=== PATIENT | female | born 1960 | race Caucasian/White ===

== ENCOUNTER 2016-05-05 18:42 | Emergency (ER) | payer BC, MEDICAID ==
--- NOTE | 2016-05-05 18:58 | ER Document Report ---
ED Medical Screen (RME) - General Stated Complaint: LEFT HAND INJURY Mode of Arrival: Ambulatory Information source: Patient Notes: Patient presents to the emergency department sent over by urgent care for increased weakness in her right upper extremity. Patient has history of aneurysms. Dr. wilson called pto requesting an MRI for the patient. Pt reports RUE has been weak for a couple of weeks. Pt went to urgent care for left hand pain. She reports +fx of 1,2,3 digit of right hand after window fell on hand. pt reports hx of two brain surgeries. I have consulted the attending provider dr blair per [facility] guidelines I have greeted and performed a rapid initial assessment of this patient. A comprehensive ED assessment and evaluation of the patient, analysis of test results and completion of the medical decision making process will be conducted by additional ED providers. TRAVEL OUTSIDE OF THE [place] IN LAST 30 DAYS: No - Related Data Allergies/Adverse Reactions: morphine Adverse Reaction (Verified 05/05/16 18:50) Past Medical History GI Medical History: Reports: Hx Gastroesophageal Reflux Disease Past Surgical History: Reports: Hx Abdominal Surgery, Hx Neurologic Surgery - 1 X stent, Hx Orthopedic Surgery - L elbow, Hx Tonsillectomy
[2016-05-05] MEDS ORDERED: OXYCODONE HCL IR 5 MG TABLET PO ONE (21:45)
--- NOTE | 2016-05-05 22:27 | ER Document Report ---
ED Hand/Wrist Injury - General Chief Complaint: Hand Pain Stated Complaint: LEFT HAND INJURY Time seen by provider: 22:27 Mode of Arrival: Ambulatory Information source: Patient TRAVEL OUTSIDE OF THE [place] IN LAST 30 DAYS: No - HPI Patient complains to provider of: left third fourth and fifth finger pain, right upper extremity weakness Injury to: Index finger, Middle finger, Ring finger Onset: Just prior to arrival Where: Home Timing: Constant Quality of pain: Achy Severity: Moderate Pain Level: 3 Context: Crush Notes: Patient is a 56-year-old female who was sent from local urgent care for evaluation of 2 separate issues, she went to the urgent care Center for complaints of injury to her left second third and fourth fingertips, states the window slammed on her fingers causing an injury with pain and swelling to these areas, she denies any other injury or trauma, her second complaint and mainly why the urgent care center to the emergency room is regarding right upper extremity weakness that she's been experiencing over the past week, patient reports a history of aneurysm in the past which has been coiled, and therefore the urgent care physician was concerned that she may have developed a new aneurysm causing her right upper extremity weakness, patient denies any pain or injury to this right upper extremity, no headaches, no slurred speech, no weakness of the lower extremities - Related Data Allergies/Adverse Reactions: morphine Adverse Reaction (Verified 05/05/16 18:50) Past Medical History - General Information source: Patient - Social History Smoking Status: Current Every Day Smoker Chew tobacco use (# tins/day): No Frequency of alcohol use: Rare Drug Abuse: None Family History: Reviewed & Not Pertinent Renal/ Medical History: Denies: Hx Peritoneal Dialysis GI Medical History: Reports: Hx Gastroesophageal Reflux Disease Past Surgical History: Reports: Hx Abdominal Surgery, Hx Neurologic Surgery - 1 X stent, Hx Orthopedic Surgery - L elbow, Hx Tonsillectomy Review of Systems - Review of Systems Constitutional: No symptoms reported EENT: No symptoms reported Cardiovascular: No symptoms reported Respiratory: No symptoms reported Gastrointestinal: No symptoms reported Genitourinary: No symptoms reported Female Genitourinary: No symptoms reported Musculoskeletal: See HPI Skin: No symptoms reported Hematologic/Lymphatic: No symptoms reported Neurological/Psychological: No symptoms reported -: Yes All other systems reviewed and negative Physical Exam - Vital signs Vitals: Temp Pulse Resp BP Pulse Ox 97.9 F 102 H 18 149/94 H 98 05/05/16 18:51 05/05/16 18:51 05/05/16 18:51 05/05/16 18:51 05/05/16 18:51 Interpretation: Tachycardic - General General appearance: Appears well, Alert - HEENT Head: Normocephalic, Atraumatic Eyes: Normal Pupils: PERRL - Respiratory Respiratory status: No respiratory distress Chest status: Nontender Breath sounds: Normal Chest palpation: Normal - Cardiovascular Rhythm: Regular Heart sounds: Normal auscultation Murmur: No - Abdominal Inspection: Normal Distension: No distension Bowel sounds: Normal Tenderness: Nontender Organomegaly: No organomegaly - Back Back: Normal, Nontender - Extremities General upper extremity: Normal ROM, Normal temperature General lower extremity: Normal inspection, Nontender, Normal color, Normal ROM , Normal temperature, Normal weight bearing. No: Lora's sign Arm: Other - Normal inspection of right upper extremity, 2+ radial pulses, brisk capillary refill distally, sensation is intact, there is a very mild strength discrepancy regarding the right upper extremity with 4 out of 5 strength Hand: Other - Distal phalanx of left second third and fourth fingertips with mild swelling and ecchymosis, brisk capillary refill, full range of motion - Neurological Neuro grossly intact: Yes Cognition: Normal Orientation: AAOx4 Anirudh Coma Scale Eye Opening: Spontaneous [place] Coma Scale Verbal: Oriented [place] Coma Scale Motor: Obeys Commands [place] Coma Scale Total: 15 Speech: Normal Motor strength normal: LUE, RUE, LLE, RLE Sensory: Normal - Psychological Associated symptoms: Normal affect, Normal mood - Skin Skin Temperature: Warm Skin Moisture: Dry Skin Color: Normal Course - Re-evaluation Re-evalutation: 05/06/16 02:27 Imaging findings were discussed with patient at bedside, which are relatively unremarkable, she was placed in finger splints for comfort, advised to follow- up with her primary care provider, neurosurgeon and orthopedics within the next week, patient acknowledges understanding and agreement with this plan - Vital Signs Vital signs: Temp Pulse Resp BP Pulse Ox 97.9 F 76 18 142/84 H 97 05/05/16 18:51 05/06/16 00:30 05/06/16 00:30 05/06/16 00:30 05/06/16 00:30 Procedures - Immobilization Left Hand Time completed: 02:28 Pre-Proc Neuro Vasc Exam: Normal Immobilizer type: Finger splint (Static) Performed by: PCT Post-Proc Neuro Vasc Exam: Normal Alignment checked and good: Yes Discharge - Discharge Clinical Impression: Right arm weakness Fingertip contusion Qualifiers: Encounter type: initial encounter Qualified Code(s): S60.00XA - Contusion of unspecified finger without damage to nail, initial encounter Condition: Stable Disposition: HOME, SELF-CARE Instructions: Contusion ([facility]), Ice Packs ([facility]), Weakness ([facility]) Additional Instructions: Follow up with your primary care provider and your neurosurgeon within the next week. Return to the emergency room immediately if symptoms worsen or any additional concerns. Prescriptions: Oxycodone HCl 5 mg PO Q6 #14 tablet Referrals: ARNOLD OLMEDO MD [Primary Care Provider] - Follow up as needed
[2016-05-06] MEDS ORDERED: HYDROCODONE/ACETAMINOPHEN 5-325 MG 6 TAB/DSPK PO PRN (00:08)
[2016-05-06 00:41] VITALS: BP 142/84
[2016-05-06] MEDS ORDERED: OXYCODONE HCL IR 5 MG TABLET PO ONE (00:45)
== END 2016-05-06 00:39 | disposition home or self-care (01) ==
LOC: ER 18:42
DX: S60.022A Contusion of left index finger without damage to nail, initial encounter (principal); S60.032A Contusion of left middle finger without damage to nail, initial encounter; S60.042A Contusion of left ring finger without damage to nail, initial encounter; R53.1 Weakness; M79.642 Pain in left hand; F17.200 Nicotine dependence, unspecified, uncomplicated; W22.8XXA Striking against or struck by other objects, initial encounter; Y92.009 Unspecified place in unspecified non-institutional (private) residence as the place of occurrence of the external cause; K21.9 Gastro-esophageal reflux disease without esophagitis; Z88.6 Allergy status to analgesic agent
CPT/HCPCS: 70496; 99284

== ENCOUNTER 2019-04-23 13:45 | Emergency (ER) | payer BC ==
[2019-04-23 13:51] VITALS: BP 111/74
[2019-04-23] MEDS ORDERED: HYDROCODONE/ACETAMINOPHEN 5-325 MG (6 TAB/ER DISP) PO PRN (14:44)
--- NOTE | 2019-04-23 14:49 | ER Document Report ---
HPI - HPI Time Seen by Provider: 04/23/19 14:33 Pain Level: 5 Notes: This is a 59-year-old female presenting to the emergency department chief complaint of dental pain and facial swelling. Patient reports dental pain started about 3 days ago and swelling started yesterday. Patient reports pain around tooth #28, 29 and 30. Denies any fevers or drainage from the area. - CONSTITUTIONAL Constitutional: REPORTS: Chills. DENIES: Fever Past Medical History - General Information source: Patient - Social History Smoking Status: Current Every Day Smoker Family History: Reviewed & Not Pertinent Patient has suicidal ideation: No Patient has homicidal ideation: No Renal/ Medical History: Denies: Hx Peritoneal Dialysis GI Medical History: Reports: Hx Gastroesophageal Reflux Disease Past Surgical History: Reports: Hx Abdominal Surgery, Hx Neurologic Surgery - 1 X stent, Hx Orthopedic Surgery - L elbow, Hx Tonsillectomy Vertical Provider Document - CONSTITUTIONAL Notes: - General General appearance: Appears well In distress: None - HEENT Head: Normocephalic Eyes: Normal Conjunctiva: Normal Ears: Normal External canal: Normal Tympanic membrane: Normal Sinus: Normal Nasal: Normal Mouth/Lips: Normal, Other - To the right lower jaw there are several dental caries erythema surrounding tooth #28, 29 and 30.. The gum itself is erythematous mildly edematous but there is no yazmin fluctuant abscess. There is no drainage. She has tenderness to palpation along all the lower right teeth. There is some facial swelling to the right lower jawline. She has no Jose Eduardo's angina. Not drooling. She has no voice change. Her airway is grossly patent. Pharynx: Normal Neck: Normal. No: Lymphadenopathy - Respiratory Respiratory status: No respiratory distress Chest status: Nontender Breath sounds: Normal Chest palpation: Normal - Cardiovascular Rhythm: Regular Heart sounds: Normal auscultation Murmur: No - Neurological Neuro grossly intact: Yes Cognition: Normal Orientation: AAOx4 Anirudh Coma Scale Eye Opening: Spontaneous [place] Coma Scale Verbal: Oriented [place] Coma Scale Motor: Obeys Commands [place] Coma Scale Total: 15 Speech: Normal Motor strength normal: LUE, RUE, LLE, RLE Sensory: Normal - Psychological Associated symptoms: Normal affect, Normal mood - Skin Skin Temperature: Warm Skin Moisture: Dry Skin Color: Normal - INFECTION CONTROL TRAVEL OUTSIDE OF THE [place] IN LAST 30 DAYS: No Course - Re-evaluation Re-evalutation: Patient appears well, nontoxic, she does have some moderate swelling to the right lower side of her face. She does have an abscess noted outside tooth #28 and 29. I informed her that this needed to be drained. Patient adamantly refusing drainage of abscess. Patient will be started on antibiotics. 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 Patient verbalized understanding and agreement with this plan. - Vital Signs Vital signs: Temp Pulse Resp BP Pulse Ox 98.4 F 96 16 111/74 96 04/23/19 13:50 04/23/19 13:50 04/23/19 13:50 04/23/19 13:50 04/23/19 13:50 Discharge - Discharge Clinical Impression: Dental abscess Condition: Stable Disposition: HOME, SELF-CARE Additional Instructions: You have been seen for dental pain. It appears that you have an abscess near 1 of your teeth, I offered to drain this but you have adamantly declined to this. Apply hot compresses to the area and hopefully this will drain on its own. Take antibiotics as prescribed. Return to the emergency department with any wors ening or development of fever. Please follow-up with oral surgery as discussed. Prescriptions: Penicillin V Potassium [Penicillin Vk 500 mg Tablet] 500 mg PO BID #20 tablet Referrals: NHUNG LEWIS DDS [ACTIVE STAFF] - Follow up as needed
== END 2019-04-23 15:02 | disposition home or self-care (01) ==
LOC: ER 13:45
DX: K04.7 Periapical abscess without sinus (principal); K02.9 Dental caries, unspecified; K08.89 Other specified disorders of teeth and supporting structures; R68.83 Chills (without fever); F17.200 Nicotine dependence, unspecified, uncomplicated
CPT/HCPCS: 99282